=== PATIENT | male | born 1960 | race Caucasian/White ===

== ENCOUNTER 2022-03-28 12:23 | Outpatient (CLI) | payer BC, SELFPAY ==
[2022-03-28 21:42] LABS: Albumin* 4.2 g/dL (3.3-5.0); Chloride* 96 mmol/L (96-114)
[2022-03-28 21:43] LABS: Potassium* 5.1 mmol/L (3.6-5.1); Sodium* 129 mmol/L (135-149)
[2022-03-28 21:45] LABS: Bilirubin Total* 0.6 mg/dL (0.1-1.5); Carbon Dioxide* 27 mmol/L (20-32); Cholesterol* 223 mg/dL (90-199); Creatinine* 0.5 mg/dL (0.5-1.5); Estimated Glomerular Filt Rate 117 ml/min; Total Protein* 7.2 g/dL (6.0-8.3)
[2022-03-28 21:46] LABS: Alanine Aminotransferase* 27 U/L (4-50); Alkaline Phosphatase* 75 U/L (40-150); Aspartate Amino Transferase* 30 U/L (12-35); Blood Urea Nitrogen* 10 mg/dL (7-30); Glucose* 91 mg/dL (60-115); HDL Cholesterol* 89 mg/dL (>=40); LDL Cholesterol Calculated 114 mg/dL (<100); Triglycerides* 101 mg/dL (40-149)
[2022-03-28 22:08] LABS: Creatinine Urine 108.6 mg/dL
[2022-03-28 22:24] LABS: Microalbumin Creatinine Ratio 0 mg/g (0-30); Microalbumin Urine < 1 mg/dL
== END 2022-03-28 12:24 | disposition home or self-care (01) ==
PROVIDERS: PCP Family Medicine; Visit Provider Family Medicine
DX: Z00.00 Encounter for general adult medical examination without abnormal findings (principal); G40.909 Epilepsy, unspecified, not intractable, without status epilepticus; J30.9 Allergic rhinitis, unspecified; Z13.6 Encounter for screening for cardiovascular disorders
CPT/HCPCS: 80053; 80061; 82043; 82570

== ENCOUNTER 2023-09-02 12:59 | Outpatient (CLI) | payer BC, SELFPAY | END 2023-09-02 13:00 | disposition home or self-care (01) | PROVIDERS: PCP Family Medicine; Visit Provider Physician Assistant Medical | DX: G40.909 Epilepsy, unspecified, not intractable, without status epilepticus (principal); Z13.6 Encounter for screening for cardiovascular disorders; Z13.29 Encounter for screening for other suspected endocrine disorder; Z12.5 Encounter for screening for malignant neoplasm of prostate | CPT/HCPCS: 80053; 80061; 84443; G0103 ==